=== PATIENT | female | born 1980 | race Caucasian/White ===

== ENCOUNTER → 2024-01-12 | Outpatient (REF) | payer OTHER ==
[2024-01-12 18:41] LABS: CREATININE,RANDOM URINE 46.4 MG/DL
[2024-01-12 18:44] LABS: PERCENT SATURATION 13.1 % (13.2-45.0)
[2024-01-12 18:45] LABS: FERRITIN 30.4 NG/ML (7.3-270.7)
[2024-01-12 18:47] LABS: FOLATE 7.3 NG/ML (>5.4)
[2024-01-12 18:55] LABS: TOTAL PROTEIN,RANDOM URINE 261.2 MG/DL (0.0-14.0)
== END ==
LOC: M LAB REF 17:11
PROVIDERS: ATTEND Internal Medicine Nephrology
DX: E10.22 Type 1 diabetes mellitus with diabetic chronic kidney disease (principal); D63.1 Anemia in chronic kidney disease

== ENCOUNTER 2024-02-22 14:03 | Outpatient (CLI) | payer OTHER ==
[~2024-02-22] VITALS: Ht 157.5 cm; Wt 90.5 kg
[~2024-02-22 14:03] MED LIST: ALBUTEROL SULFATE 2.5MG/0.5ML INH NEB SOLN INH PRN; EPINEPHrine INJ 1 MG/ML 1ML AMP IM PRN; NS 1,000 ML IV SCH; diphenhydrAMINE 50MG/ML VIAL IV PRN; methylPREDNISolone 125MG 2ML VIAL IV PRN
[2024-02-22] MEDS: IRON SUCROSE 300 MG in NS 250 ML IV ONE (14:13)
[2024-02-22 15:50] VITALS: BP 162/98; O2SAT 94
[2024-02-22 16:10] VITALS: BP 150/94; O2SAT 99
== END 2024-02-22 16:10 ==
LOC: M INFU 14:03
PROVIDERS: ATTEND Internal Medicine Nephrology
DX: E61.1 Iron deficiency (principal)
CPT/HCPCS: 96365; 96366; J1756

== ENCOUNTER 2024-02-29 14:05 | Outpatient (CLI) | payer OTHER ==
[~2024-02-29] VITALS: Ht 157.5 cm; Wt 86.3 kg
[~2024-02-29 14:05] MED LIST changes: +NS (Normal Saline) 0.9% 1,000 ML IV SCH; -NS 1,000 ML IV SCH
[2024-02-29] MEDS: IRON SUCROSE 300 MG in NS 250 ML IV ONE (14:09)
[2024-02-29 15:30] VITALS: BP 156/88; O2SAT 99
== END 2024-02-29 15:50 ==
LOC: M INFU 14:05
PROVIDERS: ATTEND Internal Medicine Nephrology
DX: E61.1 Iron deficiency (principal)
CPT/HCPCS: 96365; J1756

== ENCOUNTER 2024-03-07 14:40 | Outpatient (CLI) | payer OTHER ==
[~2024-03-07] VITALS: Ht 157.5 cm; Wt 90.5 kg
[2024-03-07 14:50] VITALS: BP 180/94; O2SAT 96
[2024-03-07] MEDS: IRON SUCROSE 300 MG in NS 250 ML IV ONE (15:38)
[2024-03-07 17:09] VITALS: BP 170/88; O2SAT 98
== END 2024-03-07 17:15 | disposition home or self-care (01) ==
LOC: M INFU 14:40
PROVIDERS: ATTEND Internal Medicine Nephrology
DX: E61.1 Iron deficiency (principal)
CPT/HCPCS: 96365; J1756

== ENCOUNTER 2024-06-13 19:52 | Inpatient (IN) | payer OTHER ==
[~2024-06-13] VITALS: Ht 157.5 cm; Wt 88.2 kg
[2024-06-13 22:04] LABS: BASO % 0.1 % (0.0-1.0); HEMATOCRIT 30.8 % (36.0-47.0); HEMOGLOBIN 10.1 g/dl (12.0-15.5); LYMPH # 0.4 10^3/uL (1.5-5.0); LYMPH % 2.4 % (24.0-44.0); MEAN CORPUSCULAR HEMOGLOBIN 29.9 pg (27.0-33.0); MEAN CORPUSCULAR HGB CONC 32.8 g/dl (32.0-36.5); MEAN CORPUSCULAR VOLUME 91.1 fl (80.0-96.0); MONO # 0.2 10^3/uL (0.0-0.8); MONO % 1.3 % (2.0-8.0); NEUTROPHILS # 14.4 10^3/uL (1.5-8.5); NEUTROPHILS % 95.9 % (36.0-66.0); RED BLOOD COUNT 3.38 10^6/uL (4.00-5.40); WHITE BLOOD COUNT 15.1 10^3/uL (4.0-10.0)
[2024-06-13] MEDS: NS (Normal Saline) 0.9% 1,000 ML IV SCH (22:09)
[2024-06-13] MEDS: ACETAMINOPHEN *IV* 1,000 MG in IV 1 EA IV ONE (22:09)
[2024-06-13] MEDS: METOCLOPRAMIDE INJ 10MG/2ML VIAL IV ONE (22:09)
[2024-06-13] MEDS: cefTRIAXone SOD 2 GM in DEXTROSE 5% (D5W) ADV/MINI-BAG 50 ML IV ONE (22:09)
[2024-06-13 22:16] LABS: INR 1.11; PARTIAL THROMBOPLASTIN TIME 22.8 SECONDS (24.8-34.2); PROTHROMBIN TIME 14.6 SECONDS (12.5-14.5)
[2024-06-13] MEDS: PANTOPRAZOLE 40MG VIAL IV ONE (22:23)
[2024-06-13 22:31] LABS: CK-MB VALUE MASS 3.9 NG/ML (<3.6)
[2024-06-13 22:32] LABS: ALBUMIN 3.2 G/DL (3.2-5.2); ALKALINE PHOSPHATASE 79 U/L (35-104); ALT/SGPT 20 U/L (7.0-40); AST/SGOT 10 U/L (<34); BILIRUBIN,TOTAL 0.2 MG/DL (0.3-1.2); BLOOD UREA NITROGEN 72 MG/DL (9-23); C REACTIVE PROTEIN QUANTITATIV < 0.50 MG/DL (<1.0); CALCIUM LEVEL 8.5 MG/DL (8.5-10.1); CARBON DIOXIDE LEVEL 18 MMOL/L (20-31); CHLORIDE LEVEL 109 MMOL/L (98-107); GLUCOSE, FASTING 260 MG/DL (60-100); POTASSIUM SERUM 4.7 MMOL/L (3.5-5.1); SODIUM LEVEL 142 MMOL/L (136-145); TOTAL PROTEIN 6.3 G/DL (5.7-8.2)
[2024-06-13 22:33] LABS: MB/CK RELATIVE INDEX 2.72 (< OR =4)
[2024-06-13 22:41] LABS: PROCALCITONIN 0.56 ng/ml
[2024-06-13 23:35] LABS: CK-MB VALUE MASS 4.1 NG/ML (<3.6); MB/CK RELATIVE INDEX 2.94 (< OR =4)
[2024-06-14 01:18] LABS: APPEARANCE, URINE HAZY (CLEAR); BACTERIA, URINE AUTO NEGATIVE (NEGATIVE); BILIRUBIN, URINE AUTO NEGATIVE (NEGATIVE); BLOOD, URINE BLOOD 1+ (NEGATIVE); COLOR, URINE YELLOW (YELLOW); GLUCOSE, URINE (UA) AUTO 3+ mg/dL (NEGATIVE); KETONE, URINE AUTO TRACE mg/dL (NEGATIVE); LEUKOCYTE ESTERASE, URINE AUTO NEGATIVE (NEGATIVE); MUCUS, URINE SMALL (NEGATIVE); NITRITE, URINE AUTO NEGATIVE (NEGATIVE); PROTEIN, URINE AUTO 3+ mg/dL (NEGATIVE); RBC, URINE AUTO 0 /HPF (0-3); SQUAMOUS EPITHELIAL CELL UR AU 3 /HPF (0-6); UROBILINOGEN, URINE AUTO 0.2 mg/dL (0.0-2.0); WBC, URINE AUTO 3 /HPF (0-3)
[2024-06-14] MEDS: HumuLIN R (REGULAR) INSULIN (NovoLIN R) **100U/ML** PER UNIT IV ONE (01:44)
[2024-06-14] MEDS ORDERED: ONDANSETRON 4MG TAB PO ONE (02:25)
[2024-06-14] MEDS ORDERED: FURO40TA2 PO (02:38)
[2024-06-14] MEDS ORDERED: ASPI-226 PO (02:38)
[2024-06-14] MEDS ORDERED: LEXA1TAB PO (02:38)
[2024-06-14] MEDS ORDERED: HYDR50TA46 PO (02:38)
[2024-06-14] MEDS ORDERED: ONDA-284 PO (02:38)
[2024-06-14] MEDS ORDERED: SODI650T PO (02:38)
[2024-06-14] MEDS ORDERED: INSU100I14 SQ (02:38)
[2024-06-14] MEDS ORDERED: HOME MED LIST COMPLETE! XX SCH (02:40)
[2024-06-14] MEDS: ONDANSETRON 4MG 2ML VIAL IV ONE (02:53)
[2024-06-14] MEDS ORDERED: GLUCAGON INJ 1MG VIAL SC PRN (05:35)
[2024-06-14] MEDS ORDERED: DEXTROSE 50% 50ML SYRINGE IV PRN (05:35)
[2024-06-14] MEDS ORDERED: ACETAMINOPHEN 325 MG TAB PO PRN (05:35)
[2024-06-14] MEDS ORDERED: GLUCOSE 4 GM CHEW PO PRN (05:35)
[2024-06-14 06:34] LABS: ABG BASE EXCESS -13.6 (-2.0-2.0); ABG HCO3 11.8 MMOL/L (22.0-26.0); ABG O2 SATURATION 97.1 % (95.0-99.0); ABG PARTIAL PRESSURE CO2 26.5 mmHg (35.0-45.0); ABG PARTIAL PRESSURE O2 105.7 mmHg (75.0-100.0); ABG STANDARD HCO3 13.8 MMOL/L. (22.0-26.0); ABG TOTAL CO2 12.7 MMOL/L (22.0-29.0); ABG pH (ARTERIAL) 7.268 UNITS (7.350-7.450)
[2024-06-14 07:48] LABS: IONIZED CALCIUM 4.5 MG/DL (4.5-5.3)
[2024-06-14 08:15] LABS: URIC ACID 10.5 MG/DL (3.1-7.8)
[2024-06-14 08:16] LABS: OSMOLALITY SERUM 344 MOSM/KG (275-295)
[2024-06-14 08:18] LABS: MAGNESIUM LEVEL 2.2 MG/DL (1.8-2.4); PHOSPHORUS LEVEL 7.1 MG/DL (2.5-4.9)
[2024-06-14 08:20] LABS: ACETONE/KETONE > 4.50 MMOL/L (0.02-0.27)
[2024-06-14] MEDS: ASPIRIN 81MG ENTERIC TABLET PO SCH (08:27)
[2024-06-14] MEDS: **hydrALAZINE** 50 MG TAB PO SCH (08:28)
[2024-06-14] MEDS: FUROSEMIDE 40 MG TAB PO SCH (08:29)
[2024-06-14] MEDS: INSULIN LISPRO (NovoLOG) PER UNIT SC SCH ×2 (08:30→22:07)
[2024-06-14] MEDS: DOCUSATE SODIUM 100MG CAPSULE PO SCH (08:30)
[2024-06-14] MEDS: ONDANSETRON 4MG ORAL DISINTEGRATING TAB PO PRN (09:12)
[2024-06-14] MEDS: SODIUM BICARBONATE 325 MG TAB PO SCH (09:12)
[2024-06-14 09:27] LABS: HEMATOCRIT 30.6 % (36.0-47.0); HEMOGLOBIN 9.8 g/dl (12.0-15.5); MEAN CORPUSCULAR HEMOGLOBIN 30.2 pg (27.0-33.0); MEAN CORPUSCULAR VOLUME 94.4 fl (80.0-96.0); PLATELET COUNT, AUTOMATED 225 10^3/uL (150-450); RED BLOOD COUNT 3.24 10^6/uL (4.00-5.40); WHITE BLOOD COUNT 16.9 10^3/uL (4.0-10.0)
[2024-06-14] MEDS: LanTUS (INSULIN GLARGINE INJ) 1 UNITS/0.01 ML SC SCH (10:17)
[2024-06-14] MEDS ORDERED: SODIUM CHLORIDE 0.9% 1000 ML IV PRN (10:20)
[2024-06-14] MEDS ORDERED: LIDOCAINE 1% SDV 5ML VIAL SC PRN (10:20)
[2024-06-14] MEDS ORDERED: LIDOCAINE 1% MDV 20ML VIAL As Ordered ONE (11:42)
[2024-06-14] MEDS: ceFAZolin SODIUM 2 GM in DEXTROSE 5% (D5W) ADV/MINI-BAG 50 ML IV ONE (12:12)
[2024-06-14] MEDS: fentaNYL 100 MCG/2 ML INJECTION IV PRN (12:14)
[2024-06-14] MEDS: MIDAZOLAM INJ 2MG/2ML VIAL IV PRN (12:15)
[2024-06-14] MEDS: HEPARIN 1,000UNITS/ML 10ML VIAL (FOR RADIOLOGY & DIALYSIS ONLY) IV PRN (12:19)
[2024-06-14] MEDS: HEPARIN 1,000UNITS/ML 10ML VIAL (FOR RADIOLOGY & DIALYSIS ONLY) XX SCH (13:11)
[2024-06-14] MEDS: DARBEPOETIN 100MCG/0.5ML *DIALYSIS* SYRINGE IV SCH (13:12)
[2024-06-14] MEDS: IRON SUCROSE 100MG/5ML VIAL IV SCH (13:49)
[2024-06-14 14:40] LABS: HEPATITIS B SURFACE ANTIBODY NEGATIVE (POSITIVE)
[2024-06-14 14:52] LABS: HEPATITIS B SURFACE ANTIGEN NEGATIVE (NEGATIVE)
[2024-06-14 15:12] LABS: HEPATITIS C VIRUS ABY INDEX 0.03 INDEX (<0.8)
[2024-06-14 15:13] LABS: HEPATITIS B CORE ANTIBODY IGM NEGATIVE (NEGATIVE)
[2024-06-14 15:54] VITALS: BP 128/68; TEMP 99; O2SAT 98
[2024-06-14 20:00] VITALS: BP 169/69; TEMP 98.8; O2SAT 97
[2024-06-14] MEDS: cefTRIAXone SOD 2 GM in DEXTROSE 5% (D5W) ADV/MINI-BAG 50 ML IV SCH (21:59)
[2024-06-14] MEDS: METOCLOPRAMIDE INJ 10MG/2ML VIAL IV ONE (21:59)
[2024-06-14] MEDS: HEPARIN SOD (PORCINE) 5000UNITS/ML 1ML VIAL/SYRINGE SC SCH (22:01)
[2024-06-14] MEDS: PANTOPRAZOLE 40MG VIAL IV SCH (22:06)
[2024-06-14] MEDS: ESCITALOPRAM OXALATE 10 MG TAB (LEXAPRO) PO SCH (22:07)
[2024-06-15] VITALS (10 sets, daily range): BP systolic 151–186; BP diastolic 64–79; TEMP 98.8–99.1; O2SAT 92–98
[2024-06-15] MEDS: ONDANSETRON 4MG 2ML VIAL IV PRN (01:58)
[2024-06-15 06:31] LABS: HEMATOCRIT 30.8 % (36.0-47.0); HEMOGLOBIN 10.1 g/dl (12.0-15.5); MEAN CORPUSCULAR HEMOGLOBIN 30.1 pg (27.0-33.0); MEAN CORPUSCULAR HGB CONC 32.8 g/dl (32.0-36.5); MEAN CORPUSCULAR VOLUME 91.9 fl (80.0-96.0); PLATELET COUNT, AUTOMATED 206 10^3/uL (150-450); RED BLOOD COUNT 3.35 10^6/uL (4.00-5.40); WHITE BLOOD COUNT 14.4 10^3/uL (4.0-10.0)
[2024-06-15 06:47] LABS: CALCIUM LEVEL 8.7 MG/DL (8.5-10.1); CHOLESTEROL RISK RATIO 3.8 (<5); CREATININE FOR GFR 5.86 MG/DL (0.55-1.30); GLOMERULAR FILTRATION RATE 8.4 (>58); HDL CHOLESTEROL 50.7 MG/DL (>40); LDL CHOLESTEROL 94.1 MG/DL (<100); MAGNESIUM LEVEL 2.1 MG/DL (1.8-2.4); NON-HDL-C 142.3 MG/DL; POTASSIUM SERUM 4.4 MMOL/L (3.5-5.1)
[2024-06-15] MEDS ORDERED: LIDOCAINE 1% SDV 5ML VIAL SC PRN (08:15)
[2024-06-15] MEDS ORDERED: SODIUM CHLORIDE 0.9% 1000 ML IV PRN (08:15)
[2024-06-15] MEDS ORDERED: HEPARIN 1,000UNITS/ML 10ML VIAL (FOR RADIOLOGY & DIALYSIS ONLY) IV PRN (08:15)
[2024-06-15] MEDS ORDERED: HEPARIN 1,000UNITS/ML 10ML VIAL (FOR RADIOLOGY & DIALYSIS ONLY) XX SCH (08:15)
[2024-06-15] MEDS: LanTUS (INSULIN GLARGINE INJ) 1 UNITS/0.01 ML SC ONE (09:00)
[2024-06-15] MEDS: LISINOPRIL *2.5 MG* TAB PO SCH (12:34)
[2024-06-15 16:34] LABS: CALCIUM LEVEL 8.4 MG/DL (8.5-10.1); CREATININE FOR GFR 4.06 MG/DL (0.55-1.30); GLOMERULAR FILTRATION RATE 12.8 (>58); POTASSIUM SERUM 3.3 MMOL/L (3.5-5.1)
[2024-06-16] VITALS (7 sets, daily range): BP systolic 138–178; BP diastolic 66–88; TEMP 97.7–98.8; O2SAT 93–96
[2024-06-16] MEDS: amLODIPine 5 MG TAB PO ONE (00:42)
[2024-06-16 04:48] LABS: HEMATOCRIT 30.6 % (36.0-47.0); HEMOGLOBIN 10.1 g/dl (12.0-15.5); MEAN CORPUSCULAR HEMOGLOBIN 30.3 pg (27.0-33.0); MEAN CORPUSCULAR VOLUME 91.9 fl (80.0-96.0); PLATELET COUNT, AUTOMATED 199 10^3/uL (150-450); RED BLOOD COUNT 3.33 10^6/uL (4.00-5.40); WHITE BLOOD COUNT 9.9 10^3/uL (4.0-10.0)
[2024-06-16 05:11] LABS: CALCIUM LEVEL 7.9 MG/DL (8.5-10.1); CREATININE FOR GFR 4.88 MG/DL (0.55-1.30); GLOMERULAR FILTRATION RATE 10.4 (>58); POTASSIUM SERUM 3.8 MMOL/L (3.5-5.1)
[2024-06-16] MEDS ORDERED: SODIUM CHLORIDE 0.9% 1000 ML IV PRN (06:00)
[2024-06-16] MEDS ORDERED: LIDOCAINE 1% SDV 5ML VIAL SC PRN (06:00)
[2024-06-16] MEDS ORDERED: HEPARIN 1,000UNITS/ML 10ML VIAL (FOR RADIOLOGY & DIALYSIS ONLY) IV PRN (06:00)
[2024-06-16] MEDS: LanTUS (INSULIN GLARGINE INJ) 1 UNITS/0.01 ML SC SCH (07:56)
[2024-06-16] MEDS: HEPARIN 1,000UNITS/ML 10ML VIAL (FOR RADIOLOGY & DIALYSIS ONLY) XX SCH (09:52)
[2024-06-16 15:58] LABS: PROCALCITONIN 1.85 ng/ml
[2024-06-17] VITALS (8 sets, daily range): BP systolic 154–169; BP diastolic 75–91; TEMP 98.6–98.9; O2SAT 95–98
[2024-06-17 04:34] LABS: HEMOGLOBIN 10.9 g/dl (12.0-15.5); MEAN CORPUSCULAR HGB CONC 34.1 g/dl (32.0-36.5); MEAN CORPUSCULAR VOLUME 88.2 fl (80.0-96.0); PLATELET COUNT, AUTOMATED 202 10^3/uL (150-450); RED BLOOD COUNT 3.63 10^6/uL (4.00-5.40); WHITE BLOOD COUNT 9.8 10^3/uL (4.0-10.0)
[2024-06-17 05:00] LABS: CALCIUM LEVEL 7.9 MG/DL (8.5-10.1); CREATININE FOR GFR 3.94 MG/DL (0.55-1.30); GLOMERULAR FILTRATION RATE 13.9 (>58); POTASSIUM SERUM 3.8 MMOL/L (3.5-5.1)
[2024-06-17] MEDS ORDERED: HEPARIN 1,000UNITS/ML 10ML VIAL (FOR RADIOLOGY & DIALYSIS ONLY) IV PRN (06:00)
[2024-06-17] MEDS ORDERED: LIDOCAINE 1% SDV 5ML VIAL SC PRN (06:00)
[2024-06-17] MEDS ORDERED: SODIUM CHLORIDE 0.9% 1000 ML IV PRN (06:00)
[2024-06-17] MEDS: HEPARIN 1,000UNITS/ML 10ML VIAL (FOR RADIOLOGY & DIALYSIS ONLY) XX SCH (09:38)
[2024-06-17] MEDS: AUGMENTIN 500MG TAB PO SCH (20:40)
[2024-06-17] MEDS ORDERED: AUGMENTIN 875 MG TAB PO SCH (21:00)
[2024-06-18] VITALS: BP 142/62; TEMP 98.2; O2SAT 97
[2024-06-18 04:00] VITALS: BP 148/72; TEMP 98.4; O2SAT 94
[2024-06-18 06:31] LABS: HEMATOCRIT 35.7 % (36.0-47.0); HEMOGLOBIN 11.9 g/dl (12.0-15.5); MEAN CORPUSCULAR HEMOGLOBIN 29.7 pg (27.0-33.0); MEAN CORPUSCULAR HGB CONC 33.3 g/dl (32.0-36.5); PLATELET COUNT, AUTOMATED 219 10^3/uL (150-450); RED BLOOD COUNT 4.01 10^6/uL (4.00-5.40); WHITE BLOOD COUNT 8.7 10^3/uL (4.0-10.0)
[2024-06-18 06:56] LABS: CALCIUM LEVEL 8.4 MG/DL (8.5-10.1); CREATININE FOR GFR 4.04 MG/DL (0.55-1.30); GLOMERULAR FILTRATION RATE 13.5 (>58); POTASSIUM SERUM 3.5 MMOL/L (3.5-5.1)
[2024-06-18 08:00] VITALS: BP 145/90; TEMP 98.2; O2SAT 97
[2024-06-18] MEDS: LanTUS (INSULIN GLARGINE INJ) 1 UNITS/0.01 ML SC SCH (09:57)
[2024-06-18] MEDS ORDERED: SODIUM CHLORIDE 0.9% 1000 ML IV PRN (10:35)
[2024-06-18] MEDS ORDERED: HEPARIN 1,000UNITS/ML 10ML VIAL (FOR RADIOLOGY & DIALYSIS ONLY) IV PRN (10:35)
[2024-06-18 12:00] VITALS: BP 145/80; TEMP 98.6; O2SAT 98
[2024-06-18] MEDS: HEPARIN 1,000UNITS/ML 10ML VIAL (FOR RADIOLOGY & DIALYSIS ONLY) XX SCH (13:14)
[2024-06-18 16:00] VITALS: BP 142/80; TEMP 98.1; O2SAT 98
[2024-06-18 21:00] VITALS: BP 122/60; TEMP 98.6; O2SAT 97
[2024-06-19] VITALS (7 sets, daily range): BP systolic 133–156; BP diastolic 65–85; TEMP 97.1–98.6; O2SAT 93–100
[2024-06-19 06:42] LABS: HEMATOCRIT 37.8 % (36.0-47.0); HEMOGLOBIN 12.4 g/dl (12.0-15.5); MEAN CORPUSCULAR HEMOGLOBIN 30.2 pg (27.0-33.0); MEAN CORPUSCULAR HGB CONC 32.8 g/dl (32.0-36.5); MEAN CORPUSCULAR VOLUME 92.2 fl (80.0-96.0); PLATELET COUNT, AUTOMATED 211 10^3/uL (150-450); WHITE BLOOD COUNT 9.8 10^3/uL (4.0-10.0)
[2024-06-19 07:12] LABS: CALCIUM LEVEL 8.3 MG/DL (8.5-10.1); CREATININE FOR GFR 4.3 MG/DL (0.55-1.30); GLOMERULAR FILTRATION RATE 12.5 (>58)
[2024-06-19] MEDS: AUGMENTIN 500MG TAB PO SCH (13:44)
[2024-06-20 04:30] VITALS: BP 158/68; TEMP 98.1; O2SAT 98
[2024-06-20 05:19] LABS: HEMATOCRIT 38.4 % (36.0-47.0); HEMOGLOBIN 12.4 g/dl (12.0-15.5); MEAN CORPUSCULAR HGB CONC 32.3 g/dl (32.0-36.5); PLATELET COUNT, AUTOMATED 224 10^3/uL (150-450); RED BLOOD COUNT 4.13 10^6/uL (4.00-5.40); WHITE BLOOD COUNT 12.1 10^3/uL (4.0-10.0)
[2024-06-20 05:38] LABS: CALCIUM LEVEL 8.4 MG/DL (8.5-10.1); CREATININE FOR GFR 5.84 MG/DL (0.55-1.30); GLOMERULAR FILTRATION RATE 8.7 (>58)
[2024-06-20] MEDS ORDERED: HEPARIN 1,000UNITS/ML 10ML VIAL (FOR RADIOLOGY & DIALYSIS ONLY) IV PRN (06:00)
[2024-06-20] MEDS ORDERED: SODIUM CHLORIDE 0.9% 1000 ML IV PRN (06:00)
[2024-06-20 08:00] VITALS: BP 170/80; TEMP 98.1; O2SAT 97
[2024-06-20] MEDS: HEPARIN 1,000UNITS/ML 10ML VIAL (FOR RADIOLOGY & DIALYSIS ONLY) XX SCH (08:54)
[2024-06-20 09:21] LABS: PROCALCITONIN 0.51 ng/ml
[2024-06-20 12:00] VITALS: BP 116/59; TEMP 97.9; O2SAT 98
[2024-06-20 16:00] VITALS: BP 123/61; TEMP 98.1; O2SAT 98
[2024-06-20 20:09] VITALS: BP 118/53; TEMP 98.6; O2SAT 97
[2024-06-21 00:15] VITALS: BP 143/70; TEMP 98.4; O2SAT 98
[2024-06-21 03:41] VITALS: BP 126/71; TEMP 98.1; O2SAT 97
[2024-06-21 05:23] LABS: HEMOGLOBIN 11.6 g/dl (12.0-15.5); MEAN CORPUSCULAR HEMOGLOBIN 30.4 pg (27.0-33.0); MEAN CORPUSCULAR HGB CONC 32.2 g/dl (32.0-36.5); MEAN CORPUSCULAR VOLUME 94.2 fl (80.0-96.0); PLATELET COUNT, AUTOMATED 194 10^3/uL (150-450); RED BLOOD COUNT 3.82 10^6/uL (4.00-5.40); WHITE BLOOD COUNT 12.5 10^3/uL (4.0-10.0)
[2024-06-21 05:49] LABS: CALCIUM LEVEL 8.9 MG/DL (8.5-10.1); CREATININE FOR GFR 4.61 MG/DL (0.55-1.30); GLOMERULAR FILTRATION RATE 11.5 (>58); POTASSIUM SERUM 4.3 MMOL/L (3.5-5.1)
[2024-06-21] MEDS: LanTUS (INSULIN GLARGINE INJ) 1 UNITS/0.01 ML SC SCH (08:28)
[2024-06-21] MEDS: HumuLIN R (REGULAR) INSULIN (NovoLIN R) **100U/ML** PER UNIT IV STA (08:29)
[2024-06-21 11:42] LABS: CALCIUM LEVEL 8.9 MG/DL (8.5-10.1); CREATININE FOR GFR 4.97 MG/DL (0.55-1.30); GLOMERULAR FILTRATION RATE 10.5 (>58); POTASSIUM SERUM 4.1 MMOL/L (3.5-5.1)
[2024-06-21 12:00] VITALS: BP 116/60; TEMP 98.4; O2SAT 97
[2024-06-21 16:00] VITALS: BP 129/60; TEMP 97; O2SAT 96
[2024-06-21 20:12] VITALS: BP 130/61; TEMP 98.2; O2SAT 96
[2024-06-22 03:13] VITALS: BP 131/60; TEMP 98.1; O2SAT 97
[2024-06-22 05:24] LABS: CALCIUM LEVEL 8.7 MG/DL (8.5-10.1); GLOMERULAR FILTRATION RATE 8.4 (>58); MAGNESIUM LEVEL 2.1 MG/DL (1.8-2.4); POTASSIUM SERUM 3.9 MMOL/L (3.5-5.1)
[2024-06-22] MEDS ORDERED: SODIUM CHLORIDE 0.9% 1000 ML IV PRN (06:00)
[2024-06-22] MEDS ORDERED: HEPARIN 1,000UNITS/ML 10ML VIAL (FOR RADIOLOGY & DIALYSIS ONLY) IV PRN (06:00)
[2024-06-22 07:00] VITALS: BP 130/64
[2024-06-22] MEDS: HEPARIN 1,000UNITS/ML 10ML VIAL (FOR RADIOLOGY & DIALYSIS ONLY) XX SCH (09:24)
[2024-06-22] MEDS ORDERED: LISI2.5T9 PO (14:13)
== END 2024-06-22 16:01 | disposition home health service (06) | DRG 470 ==
LOC: EDBD 19:52 → M ED 19:52 → M ED INP 06-14 05:32 → M MSPAV 06-14 15:17
PROVIDERS: ADMIT Family Medicine; ATTEND Student in an Organized Health Care Education/Training Program
PROC: 02H633Z Insertion of Infusion Device into Right Atrium, Percutaneous Approach (ICD-10-PCS; 2024-06-14)
PROC: B246ZZZ Ultrasonography of Right and Left Heart (ICD-10-PCS; 2024-06-14)
PROC: 5A1D70Z Performance of Urinary Filtration, Intermittent, Less than 6 Hours Per Day (ICD-10-PCS; 2024-06-14)
PROC: 0JH63XZ Insertion of Tunneled Vascular Access Device into Chest Subcutaneous Tissue and Fascia, Percutaneous Approach (ICD-10-PCS; principal; 2024-06-14 11:30)
DX: N18.6 End stage renal disease (principal); I12.0 Hypertensive chronic kidney disease with stage 5 chronic kidney disease or end stage renal disease; E10.22 Type 1 diabetes mellitus with diabetic chronic kidney disease; Z99.2 Dependence on renal dialysis; K21.9 Gastro-esophageal reflux disease without esophagitis; K44.9 Diaphragmatic hernia without obstruction or gangrene; I51.7 Cardiomegaly; D50.9 Iron deficiency anemia, unspecified; E87.20 Acidosis, unspecified; E87.70 Fluid overload, unspecified; R42 Dizziness and giddiness; R11.2 Nausea with vomiting, unspecified; R51.9 Headache, unspecified; D63.1 Anemia in chronic kidney disease; Z87.891 Personal history of nicotine dependence; Z79.82 Long term (current) use of aspirin; Z79.4 Long term (current) use of insulin; Z79.899 Other long term (current) drug therapy

== ENCOUNTER 2024-07-07 11:34 | Inpatient (IN) | payer OTHER ==
[~2024-07-07] VITALS: Ht 157.5 cm; Wt 82.0 kg
[~2024-07-07 11:34] MED LIST changes: -ALBUTEROL SULFATE 2.5MG/0.5ML INH NEB SOLN INH PRN; +ASPI-226 PO; -EPINEPHrine INJ 1 MG/ML 1ML AMP IM PRN; +FURO40TA2 PO; +HYDR50TA46 PO; +INSU100I14 SQ; +LEXA1TAB PO; +LISI2.5T9 PO; -NS (Normal Saline) 0.9% 1,000 ML IV SCH; +ONDA-284 PO; +SODI650T PO; -diphenhydrAMINE 50MG/ML VIAL IV PRN; -methylPREDNISolone 125MG 2ML VIAL IV PRN
[2024-07-07 12:20] LABS: BASO # 0.1 10^3/uL (0.0-0.2); BASO % 0.4 % (0.0-1.0); EOS % 0.2 % (0.0-3.0); HEMATOCRIT 45.3 % (36.0-47.0); HEMOGLOBIN 15.4 g/dl (12.0-15.5); LYMPH # 1.7 10^3/uL (1.5-5.0); LYMPH % 13.8 % (24.0-44.0); MEAN CORPUSCULAR HEMOGLOBIN 31.6 pg (27.0-33.0); MONO # 0.4 10^3/uL (0.0-0.8); MONO % 3.7 % (2.0-8.0); NEUTROPHILS # 9.8 10^3/uL (1.5-8.5); NEUTROPHILS % 81.7 % (36.0-66.0); PLATELET COUNT, AUTOMATED 248 10^3/uL (150-450); RED BLOOD COUNT 4.87 10^6/uL (4.00-5.40)
[2024-07-07 12:44] LABS: LIPASE 23 U/L (12-53)
[2024-07-07 12:45] LABS: AMYLASE 71 U/L (30-118)
[2024-07-07 12:48] LABS: ALBUMIN 3.9 G/DL (3.2-5.2); ALKALINE PHOSPHATASE 91 U/L (35-104); ALT/SGPT 25 U/L (7.0-40); AST/SGOT 26 U/L (<34); BILIRUBIN,DIRECT 0.2 MG/DL (<0.4); BILIRUBIN,TOTAL 0.7 MG/DL (0.3-1.2); BLOOD UREA NITROGEN 26 MG/DL (9-23); CALCIUM LEVEL 10.3 MG/DL (8.5-10.1); CARBON DIOXIDE LEVEL 23 MMOL/L (20-31); CHLORIDE LEVEL 97 MMOL/L (98-107); CREATININE FOR GFR 5.61 MG/DL (0.55-1.30); GLOMERULAR FILTRATION RATE 9.1 (>58); GLUCOSE, FASTING 128 MG/DL (60-100); POTASSIUM SERUM 4.4 MMOL/L (3.5-5.1); SODIUM LEVEL 139 MMOL/L (136-145); TOTAL PROTEIN 7.4 G/DL (5.7-8.2)
[2024-07-07 13:45] LABS: HCG, SERUM QUALITATIVE NEGATIVE (NEGATIVE)
[2024-07-07] MEDS: PROMETHAZINE 25MG/ML 1ML VIAL IV ONE ×2 (14:18→17:32)
[2024-07-07] MEDS: NS 500 ML IV ONE (14:41)
[2024-07-07 15:32] LABS: KETONE, URINE AUTO RFX 1+ mg/dL (NEGATIVE); LEUKOCYTE ESTERASE UR AUTO RFX NEGATIVE (NEGATIVE); MUCUS, URINE RFX SMALL (NEGATIVE); NITRITE, URINE AUTO RFX NEGATIVE (NEGATIVE); RBC, URINE AUTO RFX 1 /HPF (0-3); SQUAM EPITHELIAL CELL UR AURFX 8 /HPF (0-6); WBC, URINE AUTO RFX 1 /HPF (0-3)
[2024-07-07] MEDS ORDERED: ISOVUE-370 76% 100ML VIAL As Ordered ONE (16:25)
[2024-07-07] MEDS: PIPERACILLIN/TAZOBACTAM SOD 2.25 GM in DEXTROSE 5% (D5W) ADV/MINI-BAG 50 ML IV ONE (16:43)
[2024-07-07] MEDS ORDERED: NOVOINJ3 INJ (16:55)
[2024-07-07] MEDS ORDERED: LANTINJ4 INJ (16:55)
[2024-07-07] MEDS ORDERED: HOME MED LIST COMPLETE! XX SCH (16:55)
[2024-07-07] MEDS: VANCOMYCIN HCL 1,000 MG, VIAL MATE ADAPTER 1 EACH in NS 250 ML IV ONE (18:09)
[2024-07-07] MEDS ORDERED: VANCOMYCIN HCL 1,000 MG, VIAL MATE ADAPTER 1 EACH in NS 250 ML IV SCH (18:40)
[2024-07-07 19:12] LABS: VENOUS BASE EXCESS 2.6 (-2.0-2.0); VENOUS O2 SATURATION 99.1 % (60.0-80.0); VENOUS PARTIAL PRESSURE CO2 24.9 mmHg (38.0-50.0); VENOUS PARTIAL PRESSURE O2 232.2 mmHg (30.0-50.0); VENOUS PH 7.584 UNITS (7.330-7.430); VENOUS STANDARD HCO3 26.8 MMOL/L; VENOUS TOTAL CO2 23.8 MMOL/L (24.0-28.0)
[2024-07-07] MEDS: PANTOPRAZOLE 40MG VIAL IV SCH (19:20)
[2024-07-07 19:39] LABS: C REACTIVE PROTEIN QUANTITATIV < 0.50 MG/DL (<1.0)
[2024-07-07] MEDS: METOCLOPRAMIDE INJ 10MG/2ML VIAL IV PRN (19:41)
[2024-07-07 19:46] LABS: PROCALCITONIN 0.14 ng/ml
[2024-07-07 21:38] VITALS: BP 171/88; TEMP 97.8; O2SAT 99
[2024-07-07 23:00] VITALS: O2SAT 99
[2024-07-07] MEDS ORDERED: PIPERACILLIN/TAZOBACTAM SOD 3.375 GM in DEXTROSE 5% (D5W) ADV/MINI-BAG 50 ML IV SCH (23:00)
[2024-07-08] VITALS (24 sets, daily range): BP systolic 137–188; BP diastolic 69–88; TEMP 97.2–98.7; O2SAT 93–100
[2024-07-08] MEDS: PIPERACILLIN/TAZOBACTAM SOD 2.25 GM in DEXTROSE 5% (D5W) ADV/MINI-BAG 50 ML IV SCH (00:11)
[2024-07-08] MEDS ORDERED: PIPERACILLIN/TAZOBACTAM SOD 2.25 GM in DEXTROSE 5% (D5W) ADV/MINI-BAG 50 ML IV SCH (01:00)
[2024-07-08 05:29] LABS: HEMATOCRIT 38.6 % (36.0-47.0); HEMOGLOBIN 12.7 g/dl (12.0-15.5); MEAN CORPUSCULAR HEMOGLOBIN 31.3 pg (27.0-33.0); MEAN CORPUSCULAR HGB CONC 32.9 g/dl (32.0-36.5); MEAN CORPUSCULAR VOLUME 95.1 fl (80.0-96.0); PLATELET COUNT, AUTOMATED 229 10^3/uL (150-450); RED BLOOD COUNT 4.06 10^6/uL (4.00-5.40); WHITE BLOOD COUNT 11.3 10^3/uL (4.0-10.0)
[2024-07-08 05:57] LABS: PROCALCITONIN 0.17 ng/ml
[2024-07-08 06:01] LABS: ALBUMIN 3.3 G/DL (3.2-5.2); BILIRUBIN,TOTAL 0.5 MG/DL (0.3-1.2); CALCIUM LEVEL 8.9 MG/DL (8.5-10.1); CREATININE FOR GFR 6.83 MG/DL (0.55-1.30); GLOMERULAR FILTRATION RATE 7.2 (>58); POTASSIUM SERUM 4.4 MMOL/L (3.5-5.1); TOTAL PROTEIN 6.2 G/DL (5.7-8.2)
[2024-07-08] MEDS ORDERED: GLUCAGON INJ 1MG VIAL SC PRN (06:15)
[2024-07-08] MEDS ORDERED: GLUCOSE 4 GM CHEW PO PRN (06:15)
[2024-07-08] MEDS: DEXTROSE 50% 50ML SYRINGE IV PRN (06:20)
[2024-07-08 07:57] LABS: HEMOGLOBIN A1c 5.9 % (4.0-6.0)
[2024-07-08] MEDS: ENOXAPARIN 30MG/0.3ML SYRINGE (J1650 PER 10MG) SC SCH (08:52)
[2024-07-08] MEDS: NS (Normal Saline) 0.9% 1,000 ML IV SCH (10:04)
[2024-07-08] MEDS ORDERED: VANCOMYCIN HCL 1,000 MG, VIAL MATE ADAPTER 1 EACH in NS 250 ML IV SCH (16:00)
[2024-07-09] VITALS (7 sets, daily range): BP systolic 157–184; BP diastolic 77–94; TEMP 97.7–97.9; O2SAT 95–100
[2024-07-09] MEDS ORDERED: SODIUM CHLORIDE 0.9% 1000 ML IV PRN (06:00)
[2024-07-09] MEDS ORDERED: HEPARIN 1,000UNITS/ML 10ML VIAL (FOR RADIOLOGY & DIALYSIS ONLY) XX SCH (06:00)
[2024-07-09] MEDS ORDERED: HEPARIN 1,000UNITS/ML 10ML VIAL (FOR RADIOLOGY & DIALYSIS ONLY) IV PRN (06:00)
[2024-07-09 07:23] LABS: VANCOMYCIN RANDOM 12.4 UG/ML
[2024-07-09 07:51] LABS: ACETONE/KETONE 0.81 MMOL/L (0.02-0.27)
[2024-07-09] MEDS ORDERED: REGL5TAB2 PO (16:14)
[2024-07-09] MEDS ORDERED: PANT40TA29 PO (16:15)
[2024-07-09] MEDS ORDERED: ATOR40TA75 PO (16:19)
== END 2024-07-09 17:29 | disposition home or self-care (01) | DRG 48 ==
LOC: M ED 11:34 → EDBD 11:34 → M ED INP 18:32 → M PCU 21:35
PROVIDERS: ADMIT Student in an Organized Health Care Education/Training Program; ATTEND Student in an Organized Health Care Education/Training Program
PROC: 5A1D70Z Performance of Urinary Filtration, Intermittent, Less than 6 Hours Per Day (ICD-10-PCS; principal; 2024-07-08)
DX: E11.43 Type 2 diabetes mellitus with diabetic autonomic (poly)neuropathy (principal); N18.6 End stage renal disease; G47.33 Obstructive sleep apnea (adult) (pediatric); K21.9 Gastro-esophageal reflux disease without esophagitis; K31.84 Gastroparesis; K44.9 Diaphragmatic hernia without obstruction or gangrene; D63.1 Anemia in chronic kidney disease; Z86.73 Personal history of transient ischemic attack (TIA), and cerebral infarction without residual deficits; I51.7 Cardiomegaly; Z79.4 Long term (current) use of insulin; Z79.899 Other long term (current) drug therapy; I12.0 Hypertensive chronic kidney disease with stage 5 chronic kidney disease or end stage renal disease; Z79.82 Long term (current) use of aspirin